=== PATIENT | male | born 1940 | race Caucasian/White ===

== ENCOUNTER 2017-08-14 13:23 | Emergency (ER) ==
[2017-08-14 13:36] VITALS: BP 161/64; TEMP 95.4; BMI 20.2
[2017-08-14] MEDS ORDERED: ALBUTEROL 0.083% NEB NEB STA (15:17)
[2017-08-14] MEDS ORDERED: KAYEXALATE SUSP PO STA (15:18)
[2017-08-14] MEDS ORDERED: SODIUM BICARBONATE 7.5% IVP STA (16:07)
[2017-08-14] MEDS ORDERED: SODIUM CHLORIDE 1,000 ML IV STA (16:09)
[2017-08-14] MEDS ORDERED: SODIUM BICARBONATE 8.4% ONE (17:07)
--- NOTE | 2017-08-14 17:13 | ED.PDOC ---
General ED Provider: Dr. SIDDHARTH MAURO Chief Complaint: Abnormal Labs Stated Complaint: Melinaeint was called by Dr Haynes to come to the ER for Abnormal blood test done at the clinic. He denies any symtoms. Time Seen by Physician: 14:00 Mode of Arrival: Walk-In Information Source: Patient Exam Limitations: No limitations Primary Care Provider: HONG HAYNES Nursing and Triage Documentation Reviewed and Agree: Yes Reviewed sepsis parameters & appropriate labs ordered?: Yes System Inflammatory Response Syndrome: Not Applicable Sepsis Protocol: For patient's 13 years and over: Temp is 96.8 and below OR 101 and greater Pulse >90 BPM Resp >20/minute Acutely Altered Mental Status Are patient's symptoms suggestive of a new infection, such as: -Pneumonia -Skin, Soft Tissue -Endocarditis -UTI -Bone, Joint Infection -Implantable Device -Acute Abdominal Infection -Wound Infection -Meningitis -Blood Stream Catheter Infection -Unknown System Inflammatory Response Syndrome: Not Applicable Review of Systems - Review Of Systems Constitutional: Reports: No symptoms Eyes: Reports: No symptoms Ears, Nose, Mouth, Throat: Reports: No symptoms Respiratory: Reports: No symptoms Cardiac: Reports: No symptoms GI: Reports: No symptoms : Reports: No symptoms Musculoskeletal: Reports: No symptoms Skin: Reports: No symptoms Neurological: Reports: No symptoms Endocrine: Reports: No symptoms Hematologic/Lymphatic: Reports: No symptoms All Other Systems: Reviewed and Negative Past Medical History - Past Medical History Endocrine: Reports: None Cardiovascular: Reports: CAD, [place] Respiratory: Reports: None Hematological: Reports: None Gastrointestinal: Reports: None Genitourinary: Reports: CKD Neuro/Psych: Reports: None Musculoskeletal: Reports: None Cancer: Reports: None - Surgical History General Surgical History: Reports: Stent, Other (Stents x 2, baloon agioplasty x 3) - Family History Family History: Reports: Unknown - Social History Smoking Status: Former smoker Hx Substance Use: No Alcohol Screening: None Physical Exam - Physical Exam Appearance: Well-appearing, No pain distress, Well-nourished Eyes: OLIVER, EOMI, Conjunctiva clear ENT: Ears normal, Nose normal, Oropharynx normal Respiratory: Airway patent, Breath sounds clear, Breath sounds equal, Respirations nonlabored Cardiovascular: Pulses normal, No rub, No murmur, Bradycardia GI/: Soft, Nontender, No masses, Bowel sounds normal, No Organomegaly Musculoskeletal: Normal strength, ROM intact, No edema, No calf tenderness Skin: Warm, Dry, Normal color Neurological: Sensation intact, Motor intact, Reflexes intact, Cranial nerves intact, Alert, Oriented Psychiatric: Affect appropriate, Mood appropriate Interpretation - EKG Interpretation Rate: Rudy (37 (asymtomatic) ) Rhythm: Other (Junctinal Rhytm.) Ectopy: None Interpretation: Junctional Rhytm Critical Care Note - Critical Care Note Total Time (mins): 30 Comments: Patient notified of bradycardia on EKG. States he does not want to get any intervention for it at this time. States he has had bradycardia for a long time and has been asymtomatic. Course - Course Hematology/Chemistry: 08/14/17 14:37 08/14/17 18:05 Orders, Labs, Meds: Lab Review 08/14/17 08/14/17 08/14/17 14:37 14:38 16:08 WBC 9.58 RBC 3.43 L Hgb 11.8 L Hct 34.8 L MCV 101.5 H MCH 34.4 H MCHC 33.9 RDW Coeff of Graciela 14.7 Plt Count 201 Immature Gran % (Auto) 0.3 Neut % (Auto) 65.6 Lymph % (Auto) 18.7 Gove % (Auto) 8.4 Eos % (Auto) 6.1 Baso % (Auto) 0.9 Immature Gran # (Auto) 0.0 Neut # 6.3 Lymph # 1.8 Gove # 0.8 Eos # 0.6 Baso # 0.1 Puncture Site rrad O2 Saturation 95.0 ABG pH 7.288 L* ABG pCO2 40.3 ABG pO2 82.0 L ABG HCO3 19.3 L ABG Total CO2 21 L ABG Base Excess -7 L Binh Test + FiO2 % 21.0 Sodium 138 Potassium 6.1 H* Chloride 110 H Carbon Dioxide 21 L Anion Gap 13.1 BUN 28 H Creatinine 2.50 H Estimated GFR (MDRD) 25.00 BUN/Creatinine Ratio 11.20 Glucose 83 Calcium 9.3 Magnesium 1.9 Total Bilirubin 0.4 AST 14 L ALT < 6 L Alkaline Phosphatase 109 Total Protein 7.6 Albumin 3.6 Globulin 4.0 Albumin/Globulin Ratio 0.90 08/14/17 18:05 WBC RBC Hgb Hct MCV MCH MCHC RDW Coeff of Graciela Plt Count Immature Gran % (Auto) Neut % (Auto) Lymph % (Auto) Gove % (Auto) Eos % (Auto) Baso % (Auto) Immature Gran # (Auto) Neut # Lymph # Gove # Eos # Baso # Puncture Site O2 Saturation ABG pH ABG pCO2 ABG pO2 ABG HCO3 ABG Total CO2 ABG Base Excess Binh Test FiO2 % Sodium Potassium 5.5 H Chloride Carbon Dioxide Anion Gap BUN Creatinine Estimated GFR (MDRD) BUN/Creatinine Ratio Glucose Calcium Magnesium Total Bilirubin AST ALT Alkaline Phosphatase Total Protein Albumin Globulin Albumin/Globulin Ratio Orders Category Date Time Status ABG DRAW REQUEST Stat CARDIO 08/14/17 16:08 Completed EKG-(ED ONLY) Stat CARDIO 08/14/17 15:11 Completed NEBULIZER TREATMENT Stat CARDIO 08/14/17 15:18 Completed ED IV/MEDIPORT/POWERPORT .ONCE EMERGENCY 08/14/17 16:07 Active ABG Stat LAB 08/14/17 16:08 Completed CBC W/ AUTO DIFF Stat LAB 08/14/17 14:37 Completed COMPREHENSIVE METABOLIC PANEL Stat LAB 08/14/17 14:38 Completed MAGNESIUM Stat LAB 08/14/17 14:38 Completed POTASSIUM Stat LAB 08/14/17 18:05 Completed 0.9 % Sodium Chloride [Saline Flush] MEDS 08/14/17 16:07 Discontinued 1 syr IVF PRN PRN Albuterol Sulfate 0.083% Neb [Albuterol 0.083% Neb] MEDS 08/14/17 15:17 Discontinued 1 vial NEB ONCE STA Sodium Bicarb 7.5% [Sodium Bicarbonate 7.5%] MEDS 08/14/17 16:07 Discontinued 22.3 meq IVP ONCE STA Sodium Bicarbonate [Sodium Bicarbonate 8.4%] MEDS 08/14/17 17:07 Discontinued 50 meq .ROUTE .STK-MED ONE Sodium Chloride 0.9% [Sodium Chloride] 1,000 ml MEDS 08/14/17 16:09 Discontinued IV BOLUS Sodium Polystyrene Sulfonate [Kayexalate Susp] MEDS 08/14/17 15:18 Discontinued 30 gm PO ONCE STA Medications Discontinued Medications Generic Name Dose Route Start Last Admin Trade Name Freq PRN Reason Stop Dose Admin Albuterol Sulfate 1 vial 08/14/17 15:17 08/14/17 15:40 Albuterol 0.083% Neb NEB 08/14/17 15:18 1 vial ONCE STA Administration Sodium Chloride 1,000 mls @ 1,000 mls/hr 08/14/17 16:09 08/14/17 17:11 Sodium Chloride IV 08/14/17 17:08 1,000 mls/hr BOLUS STA Administration Sodium Bicarbonate 22.3 meq 08/14/17 16:07 08/14/17 17:28 Sodium Bicarbonate 7.5% IVP 08/14/17 16:08 Not Given ONCE STA Sodium Chloride 1 syr 08/14/17 16:07 Saline Flush IVF PRN PRN To flush IV Sodium Polystyrene Sulfonate 30 gm 08/14/17 15:18 08/14/17 16:01 Kayexalate Susp PO 08/14/17 15:19 30 gm ONCE STA Administration Vital Signs: Temp Pulse Resp BP Pulse Ox 08/14/17 13:25 95.4 F L 39 L 20 161/64 H 98 Departure - Departure Time of Disposition: 18:00 Disposition: HOME SELF-CARE Discharge Problem: Laboratory test result abnormal, Acute hyperkalemia Chronic renal insufficiency Qualifiers: Chronic kidney disease stage: stage 4 (severe) Qualified Code(s): N18.4 - Chronic kidney disease, stage 4 (severe) Instructions: Chronic Kidney Disease (ED), Hyperkalemia (ED) Condition: Stable Pt referred to PMD for follow-up: Yes Additional Instructions: Follow up with Dr Haynes in 2 days to have blood work repeated. Avoid Potassium containing foods. Allergies/Adverse Reactions: Allergies No Known Drug Allergies Adverse Reaction (Verified 03/14/13 21:03) Home Medications: Ambulatory Orders Aspirin [Aspirin EC] 81 mg PO DAILY 03/14/13 Clopidogrel Bisulfate [Plavix] 75 mg PO DAILY 03/14/13 Furosemide [Lasix Tab] 40 mg PO MOWEFR@0630 03/14/13 Metoprolol Succinate [Toprol Xl] 25 mg PO DAILY 03/14/13 Nitroglycerin [Nitrostat] 0.4 mg SL Q5MIN X 3 DOSES PRN 03/14/13 Sertraline HCl [Zoloft] 75 mg PO DAILY 03/14/13 Valsartan [Diovan] 40 mg PO DAILY 03/14/13 Albuterol Sulfate [Proair Hfa] 1 puff INH QID 08/06/16 Sodium Bicarbonate 650 mg PO DAILY 08/06/16 Disposition Discussed With: Patient
--- NOTE | 2017-08-17 14:27 | PN ---
DATE OF SERVICE: 08/14/17 SUBJECTIVE: Dr. Chano Sweeney has potassium of 6.3 and labs were done on 08/13/17. The patient has history of chronic renal failure. 76 year old white male was seen in the emergency room after being called for his high potassium. It was reported to by the [facility] to my home. I called the patient up and the patient was instructed to go to the emergency room. Dr. Grace was health information management director. Dr. Grace consulted me about his high potassium. This patient has declined hemodialysis. He has chronic renal failure which has been stable with creatinine was 2.4 and BUN 31 with GFR of 23. He is a heavy smoker. At present time hyperkalemia is asymptomatic. REVIEW OF SYSTEMS: CONSTITUTIONAL: No night sweats. No fatigue, malaise, lethargy. No fever or chills. HEENT: Eyes: No visual changes. No eye pain. No eye discharge. ENT: No runny nose. No epistaxis. No sinus pain. No sore throat. No odynophagia. No congestion. RESPIRATORY: No cough, no congestion. No hemoptysis. No shortness of breath. CARDIOVASCULAR: No angina symptoms. No CHF symptoms. No atypical chest pain for CAD. No palpitations. No orthopnea. GASTROINTESTINAL: No abdominal pain. No nausea or vomiting. No diarrhea or constipation. No hematemesis. No hematochezia. GENITOURINARY: No urgency. No frequency. No dysuria. No hematuria. No obstructive symptoms. No discharge. No pain. No significant abnormal bleeding. MUSCULOSKELETAL: No musculoskeletal pain; no joint swelling. NEUROLOGICAL: No headache. No neck pain. No syncope. No seizures. No dizziness. PSYCHIATRIC: Not anxious. No depression. No suicidal thoughts. No homicidal thoughts. SKIN: No rash. No lesions. No wounds. ENDOCRINE: No unexplained weight loss. No weight gain. HEMATOLOGIC/LYMPHATIC: No anemia. No purpura. No petechiae. No prolonged or excessive bleeding. No palpable lymph nodes. PHYSICAL EXAMINATION: GENERAL: The patient is oriented to time, place and person. VITAL SIGNS: Temperature 98, pulse 50, respiratory rate 15, blood pressure 130/ 70. HEENT: Head normocephalic, atraumatic. Eyes: Extraocular muscles are intact. Pupils are equal, round and reactive to light and accommodation. Ears: No lesions. Nose appeared normal. Throat: No exudate or erythema. NECK: Supple. No JVD, no carotid bruit. No lymphadenopathy or thyromegaly. LUNGS: Decreased breath sounds but clear to auscultation. Percussion note normal. Chest symmetrical. HEART: S1, S2, no S3. No murmurs. No cyanosis or clubbing. No ascites. Pulses: Dorsalis pedis and posterior tibial pulses +1 to +2 both sides. ABDOMEN: Soft. Nontender. Bowel sounds active. No CVA tenderness. No mass felt. EXTREMITIES: No edema. Full range of motion of all extremities, equal. NEUROLOGIC: No focal deficit. Cranial nerves II through XII are grossly intact. No headache, no double vision or headache. SKIN: Not dry. Intact. Turgor - normal. LYMPHATIC: No palpable lymph nodes/no lymphedema. MUSCULOSKELETAL: Normal joints with no swelling. Muscle tone is normal. LABS: Done on 08/13/17 showed cholesterol of 144, triglycerides normal, creatinine 2.96, BUN 31, potassium 6.3, Co2 23, liver profile normal, A1c 5.1, hgb 12.2, hct 35. TSH normal ASSESSMENT: 1. Hyperkalemia 2. Chronic renal failure 3. Severe chronic lung disease 4. Hypertension 5. Dyslipidemia PLAN: 1. To give patient half an amp of bicarb or even 1 amp 2. The patient's PCO2 in the rage of acidosis, we will do ABG,Dr. Grace agreed. 3. The patient is given Kayexalate 4. The patient is instructed about the diet 5. Advised to discontinue bananas , potatoes and mostly fruits 6. The patient is advised followup. The patient is to be seen within 2-3 days and have another CMP done 7. The patient had EKG done which is sinus bradycardia probably junctional rhythm. 8. Strongly advised to have Holter Monitor to which he declined. CONDITION: Stable. TIME SPENT: More than 30 minutes. Emergency room visit. Plan and coordination of the patient's care discussed in the presence of nurse. CHRISTINA
== END 2017-08-14 18:50 | disposition home or self-care (01) ==
LOC: ED 13:23
DX: E87.5 Hyperkalemia (principal); N18.4 Chronic kidney disease, stage 4 (severe); I25.10 Atherosclerotic heart disease of native coronary artery without angina pectoris; I25.2 Old myocardial infarction; Z95.5 Presence of coronary angioplasty implant and graft
CPT/HCPCS: 36415; 80053; 82803; 83735; 84132; 85025; 93005; 93010; 94640; 96361; 96374; 99283

== ENCOUNTER 2018-11-18 07:55 | Outpatient (CLI) | END 2018-11-18 07:56 | disposition home or self-care (01) | LOC: LAB 07:55 | PROVIDERS: ATTEND Internal Medicine | DX: E87.5 Hyperkalemia (principal) | CPT/HCPCS: 36415; 80053 ==